=== PATIENT | female | born 2000 | race African-American/Black ===

== ENCOUNTER 2019-03-06 20:16 | Emergency (ER) | payer OTHER | END 2019-03-06 21:20 | disposition left against medical advice (07) | LOC: ED 20:16 | DX: T78.1XXA Other adverse food reactions, not elsewhere classified, initial encounter (principal); X58.XXXA Exposure to other specified factors, initial encounter; Z53.21 Procedure and treatment not carried out due to patient leaving prior to being seen by health care provider ==

== ENCOUNTER 2019-07-24 16:55 | Emergency (ER) | payer OTHER ==
--- NOTE | 2019-07-24 18:38 | ED ---
Throat Pain/Nasal Congestion - HPI Summary HPI Summary: Patient complains of sore throat pain 1 week. History of oral sex on 1979 days ago. Patient strep negative at urgent care. Denies fever, cough, ARIAS , CP, SOB, N/V/D, bowel pain, change in urine, change in BM. Denies medical history. - History of Current Complaint Chief Complaint: EDThroatPain Time Seen by Provider: 07/24/19 18:25 Hx Obtained From: Patient Onset/Duration: Gradual Onset, Lasting Days Severity: Moderate Associated Signs And Symptoms: Positive: Negative Cough: None - Allergies/Home Medications Allergies/Adverse Reactions: Allergies Allergy/AdvReac Type Severity Reaction Status Date / Time No Known Allergies Allergy Verified 07/24/19 17:04 PMH/Surg Hx/FS Hx/Imm Hx Endocrine/Hematology History: Denies: Hx Anticoagulant Therapy Cardiovascular History: Denies: Hx Pacemaker/ICD History: Denies: Hx Dialysis Sensory History: Denies: Hx Eye Prosthesis Opthamlomology History: Denies: Hx Legally Blind EENT History: Denies: Hx Deafness Neurological History: Denies: Hx Dementia Infectious Disease History: No Infectious Disease History: Denies: Traveled Outside the [place] in Last 30 Days - Family History Known Family History: Positive: Non-Contributory - Social History Alcohol Use: Occasionally Hx Substance Use: No Hx Tobacco Use: No Review of Systems Constitutional: Negative Eyes: Negative Positive: Sore Throat Cardiovascular: Negative Respiratory: Negative Gastrointestinal: Negative Genitourinary: Negative Musculoskeletal: Negative Skin: Negative Neurological: Negative Psychological: Normal All Other Systems Reviewed And Are Negative: Yes Physical Exam Triage Information Reviewed: Yes Vital Signs On Initial Exam: Initial Vitals Temp Pulse Resp BP Pulse Ox 98.7 F 99 18 125/85 96 07/24/19 16:58 07/24/19 16:58 07/24/19 16:58 07/24/19 16:58 07/24/19 16:58 Vital Signs Reviewed: Yes Appearance: Positive: Well-Appearing Skin: Positive: Warm Head/Face: Positive: Normal Head/Face Inspection Eyes: Positive: Normal ENT: Positive: Pharyngeal erythema, TMs normal, Tonsillar swelling, Tonsillar exudate, Uvula midline. Negative: Nasal congestion, Trismus, Muffled voice, Hoarse voice Neck: Positive: Supple Respiratory/Lung Sounds: Positive: Clear to Auscultation Cardiovascular: Positive: Normal Abdomen Description: Positive: Nontender Musculoskeletal: Positive: Normal Neurological: Positive: Normal Psychiatric: Positive: Normal AVPU Assessment: Alert - Surjit Coma Scale Best Eye Response: 4 - Spontaneous Best Motor Response: 6 - Obeys Commands Best Verbal Response: 5 - Oriented Coma Scale Total: 15 Diagnostics - Vital Signs Vital Signs Temp Pulse Resp BP Pulse Ox 07/24/19 16:58 98.7 F 99 18 125/85 96 - Laboratory Lab Statement: Any lab studies that have been ordered have been reviewed, and results considered in the medical decision making process. EENT Course/Dx - Course Course Of Treatment: Patient complains of sore throat pain 1 week. History of oral sex on 07/15/1980 days ago. Patient strep negative at urgent care. Denies fever, cough, ARIAS, CP, SOB, N/V/D, bowel pain, change in urine, change in BM. Denies medical history. Vital signs within normal limits. [place] negative. Strep negative at urgent care STD cultures pending. Rocephin 250 mg IM, azithromycin 1 g by mouth administered here in the ED along with prednisone 60 mg. Rx for Z-Yohan and prednisone 40 mg daily 5 days. - Diagnoses Provider Diagnoses: Pharyngitis Discharge ED - Sign-Out/Discharge Documenting (check all that apply): Patient Departure Patient Received Moderate/Deep Sedation with Procedure: No - Discharge Plan Condition: Stable Disposition: HOME Prescriptions: Azithromycin 250 mg PO DAILY 5 Days #4 tablet Lidocaine 2% VISCOUS* [Xylocaine 2% Viscous*] 15 ml SWISH SPIT Q6H PRN #1 btl PRN Reason: Pain - Moderate predniSONE TAB* [Deltasone 20 MG TAB*] 40 mg PO DAILY 5 Days #10 tab Patient Education Materials: Pharyngitis (ED) Referrals: No Primary Care Phys,NOPCP [Primary Care Provider] - Additional Instructions: Take antibiotics as directed. Use lidocaine for sore throat pain. Take prednisone as directed. Follow-up with primary care. Return to the ED for any new or worsening symptoms. - Billing Disposition and Condition Condition: STABLE Disposition: Home - Attestation Statements Provider Attestation: I was available for consult. This patient was seen by the BLADIMIR. The patient was not presented to, seen by, or examined by me. Shivam Buchanan MD
[2019-07-24] MEDS ORDERED: Lidocaine 2% VISCOUS* 15 ML UDC PO ONE (18:51)
[2019-07-24] MEDS ORDERED: cefTRIAXone VIAL(*) 250 MG VIAL IM ONE (20:02)
[2019-07-24] MEDS ORDERED: Lidocaine 1% MPF ** 5 ML VIAL IM ONE (20:02)
[2019-07-24] MEDS ORDERED: predniSONE TAB* 20 MG PO ONE (20:02)
[2019-07-24] MEDS ORDERED: Azithromycin TAB* 250 MG PO ONE (20:02)
[2019-07-24 20:53] VITALS: BP 130/82
[2019-07-26 22:16] LABS: C. trach Amplified RNA Negative (Negative); N Gonorr Amplified RNA Negative (Negative); Source THROAT
== END 2019-07-24 20:50 | disposition home or self-care (01) ==
LOC: ED 16:55
DX: J02.9 Acute pharyngitis, unspecified (principal)
CPT/HCPCS: 36415; 84702; 86308; 87070; 87491; 87591; 96372; 99213; 99283; A9270-GY; G0463; J0696; J7512